=== PATIENT | female | born 1990 | race Caucasian/White ===

== ENCOUNTER 2023-07-16 14:31 | Outpatient (REF) | payer OTHER, SELFPAY ==
[2023-07-19 17:10] LABS: Age Gdln ACOG Testing Note (.); HPV Aptima Negative (Negative); IGP, Aptima HPV, rfx 16/18,45 Note (.)
== END 2023-07-16 14:32 | disposition home or self-care (01) ==
LOC: LAB 14:31
PROVIDERS: Visit Provider Obstetrics & Gynecology
DX: Z01.419 Encounter for gynecological examination (general) (routine) without abnormal findings (principal)
CPT/HCPCS: 87624; G0145

== ENCOUNTER 2024-07-23 17:56 | Outpatient (REF) | payer OTHER, SELFPAY | END 2024-07-23 17:57 | disposition home or self-care (01) | LOC: LAB 17:56 | PROVIDERS: Visit Provider Obstetrics & Gynecology | DX: Z01.419 Encounter for gynecological examination (general) (routine) without abnormal findings (principal) | CPT/HCPCS: 87624; 88175 ==

== ENCOUNTER 2024-11-13 11:10 | Outpatient (OUT) | payer OTHER, SELFPAY ==
--- OUTSIDE RECORDS SUMMARY | 2024-11-13 11:15 | XMS_ITS | Encounter Summary ---
Author Organization [facility] Address [address] [facility] [place] [address] Care Team Providers Care It Support Analyst Name Role Phone Racquel Fritz MD Primary Care Provider [phone] Encounter Details Date Type Department Care Team (Late st Contact Info) Description 07/28/2024 Orders Only [facility] [address] [facility] [place] [address] Allyson Campbell LPN [address] ST[address] [facility]11 Social History Tobacco Use Types Packs/Day Years Used Date Smoking Tobacco: Former Cigarettes Q uit: 09/13/2017 Alcohol Use Standard Drinks/Week Comments Yes 0 (1 standard drink = 0.6 oz pure alcohol) caffeine: 1-2 cups per day coffee Comments No Sex and Gender Information Value Date Recorded Sex Assigned at Female 07/09/2023 9:04 AM EDT Legal Sex Female 6:51 PM EDT Gender Identity Female 07/09/2023 9:04 AM EDT Sexual Orientation Straight 07/09/2023 9 :04 AM EDT documented as of this encounter Plan of Treatment Upcoming Encounters Date Type Department Care Team (Late st Contact Info) Description 11/24/2024 9:10 AM EDT Office Visit [facility] [address] [facility] [place] [phone] Panda Justice, [address] [facility] [place] [address] 07/28/2025 11:00 AM EDT Office Visit [facility] OB [address] [facility] [place] [address] Panda Jsutice, [address] [facility] [place] [address] documented as of this encounter Procedures Procedure Name Priority Date/Time Associated Diagnosis Comments PAP SMEAR Routine 07/23/2024 12:00 AM EDT documented in this encounter Results * Pap Smear (07/23/2024 12:00 AM EDT) Swab Cervical swab / Unknown Vinh Nurse [facility] LAB CYTOLOGY ORDERABLES Final Result EXTERNAL LAB documented in this encounter Visit Diagnoses Not on filedocumented in this encounter Care Teams It Support Analyst Relationship Specialty Start Date End Date Racquel Fritz MD [address] [place] [address] PCP - General Family Medicine 08/28/22 documented as of this encounter
--- OUTSIDE RECORDS SUMMARY | 2024-11-13 11:15 | XMS_ITS | Clinical Summary ---
Author Organization [facility] Address [address] [facility] [place] [address] Care Team Providers Care International Logistics Manager Name Role Phone Racquel Fritz MD Primary Care Provider [phone] Allergies Active Allergy Reactions Criticality Noted Date Comments Calamine 07/16/2023 Other Reaction(s): Unknown Camphor 07/16/2023 Other Reaction(s): Unknown Diphenhydramine 07/16/2023 Other Reaction(s): Unknown Pramoxine 07/16/2023 Other Reaction(s): Unknown Pramoxine-Calamine 07/16/2023 Other Reaction(s): Unknown Medications lamoTRIgine (LaMICtal) 200 MG tablet Take 1 tablet by mouth at bedtime 4 Active citalopram (CeleXA) 40 MG tablet Take 40 mg by mouth Daily 4 Active amphetamine-dex troamphetamine XR (Adderall XR) 25 MG 24 hr capsule TAKE 1 CAPSULE BY MOUTH 1 TIME PER DAY IN THE MORNING UPON AWAKENING 4 Active levonorgestrel- ethinyl estradiol (Jolessa) 0.15-0.03 MG tabletIndicatio ns: control counseling Take 1 tablet by mouth Daily 91 tablet 3 5 Active Encounters Date Type Department Care Team Description 10/20/2024 Abstract [facility] OB [address] [place] [address] [place] [address] Jeanine Ospina, ENGINE WATCHMAN 10/20/2024 Telephone [facility] [address] [place] [address] Panda Justice DO 10/20/2024 Orders Only N[facility] [address] [place] [address] Panda Justice DO Encounter for long-term (current) use of medications 09/25/2024 Abstract [facility] [address] [place] [address] Panda Justice DO 09/01/2024 Abstract [facility] [address] [place] [address] Jeanine Ospina, ENGINE WATCHMAN 09/01/2024 [address]phone [facility] [address] [place] [address] Panda Justice DO from Last 3 Months Family History Medical History Relation Name Comments Hypertension Father Diabetes Mother Cancer Paternal Grandmother Relation Name Status Comments Father Alive Mother Alive Paternal Grandmother Sister open heart surg hue[place] as a child Social History Tobacco Use Types Packs/Day Years Used Date Smoking Tobacco: Former Cigarettes Q uit: 09/13/2017 Tobacco Cessation:Counseling Given: Not Answered Alcohol Use Standard Drinks/Week Comments Yes 0 (1 standard drink = 0.6 oz pure alcohol) caffeine: 1-2 cups per day coffee Comments No Sex and Gender Information Value Date Recorded Sex Assigned at Female 07/09/2023 9:04 AM EDT Legal Sex Female 6:51 PM EDT Gender Identity Female 07/09/2023 9:04 AM EDT Sexual Orientation Straight 07/09/2023 9: 04 AM EDT Last Filed Vital Signs Vital Sign Reading Time Taken Comments Blood Pressure 122/72 07/23/2024 11:27 AM EDT Pulse - - Temperature - - Respiratory Rate - - Oxygen Saturation - - Inhaled Oxygen Concentration - - Weight 103 kg (228 lb) 07/23/2024 11:27 AM EDT Height 169.5 cm (5' 6.75 ) 11/21/2017 12:00 PM E DT Body Mass Index 35.98 11/21/2017 12:00 PM EDT Plan of Treatment Upcoming Encounters Date Type Department Care Team (Late st Contact Info) Description 11/24/2024 9:10 AM EDT Office Visit [facility] OB [address] [place] [address] [place] [phone] Panda Justice, DO [address] [facility] [address] [place], [place] [id number] 07/28/2025 11:00 AM EDT Office Visit [facility] OB [address] [place] [address] [place] [address] Panda Justice, DO [address] [facility] [address] [place], [place] [id number] Health Maintenance Due Date Last Done Comments Influenza Vaccine (#1) 2024 Pap Smear 07/24/2027 07/23/2024, 07/16/2023 Cervical Cancer Screening 07/15/2028 HPV/Cotest 07/15/2028 08/12/2017 Procedures Procedure Name Priority Date/Time Associated Diagnosis Comments PAP SMEAR Routine 07/23/2024 12:00 AM EDT Q - THINPREP(R) TIS AND HPV MRNA E6/E7 RFL HPV 16,18/45 Routine 08/12/2017 from Last 3 Months or Most Recently Relevant to Health Maintenance Results * Pap Smear (07/23/2024 12:00 AM EDT) Swab Cervical swab / Unknown us Vinh Nurse [facility] Ob LAB CYTOLOGY ORDERABLES Final Result EXTERNAL LAB * (ABNORMAL) Q - THINPREP(R) TIS AND HPV MRNA E6/E7 RFL HPV 16,18/45 (08/12/2017) RESULTS SEE NOTE(A) [facility] Comment: GYNECOLOGICAL CYTOLOGY REPORT THINPREP TIS PAP AND HPV mRNA, E6/E7 REFLEX HPV 16,18/45 Thinprep-TIS REPORT STATUS: FINAL CLINICAL INFORMATION: Information not provided SLIDES / SOURCE: 1 / Information not provided STATEMENT OF ADEQUACY: Satisfactory for evaluation. Endocervical/transformation zone component present. INTERPRETATION/RESULT: Negative for intraepithelial lesion or malignancy. Shift in vaginal kate suggestive of bacterial vaginosis. COMMENT: This Pap test has been evaluated with computer assisted technology. FULL SERVICE VENDING DRIVER: DAX MENENDEZ(ASC) For informational Purposes: All cytology [facility] are [facility] and [facility]. [address] [place] [address], [facility]) For informational purposes: All cytology specimens are processed at [facility]. [address] [place] [address] The Pap is a screening test for cervical cancer. It is not a diagnostic test and is subject to false negative and false positive results. It is most reliable when a satisfactory sample, regularly obtained, is submitted with relevant clinical findings and history, and when the Pap result is evaluated along with historic and current clinical information. HPV mRNA E6/E7 RFX HPV 16, 18/45 HPV mRNA E6E7 Detected REFERENCE RANGE: NOT DETECTED This test was performed using the APTIMA HPV Assay ([employer] This assay detects E6/E7 viral messenger RNA (mRNA) from 14 high-risk HPV types (16,18,31,33,35,39,45,51,52,56,58,59,66,68). For more information on the limitations of this test, visit: http://www.opinions.h.SalesWarp/testcenter/ testguide.action?dc=TS_HPV_HighRiskE6_E7_TMA HPV GENOTYPES 16,18/45 HPV 16 RNA TMA NOT DETECTED HPV 18/45 RNA TMA NOT DETECTED 08/12/2017 Andressa Barillas CNM [facility] Final Result [facility] from Last 3 Months or Most Recently Relevant to Health Maintenance Insurance [employer] Care Teams International Logistics Manager Relationship Specialty Start Date End Date Racquel Fritz MD [address] [place] [address] PCP - General Family Medicine 08/28/22
--- OUTSIDE RECORDS SUMMARY | 2024-11-13 11:15 | XMS_ITS | Encounter Summary ---
Author Organization [facility] Address [address] [facility] [place] [address] Care Team Providers Care Legal Clerk Name Role Phone Racquel Fritz MD Primary Care Provider [phone] Encounter Details Date Type Department Care Team (Late st Contact Info) Description 07/22/2023 Orders Only [facility] OB [address] [facility] [place] [address] Allyson Campbell LPN [address] STACK [facility]11 Social History Tobacco Use Types Packs/Day Years Used Date Smoking Tobacco: Former Cigarettes Q uit: 09/13/2017 Alcohol Use Standard Drinks/Week Comments Yes 0 (1 standard drink = 0.6 oz pure alcohol) caffeine: 1-2 cups per day coffee Comments Unknown Sex and Gender Information Value Date Recorded Sex Assigned at Female 07/09/2023 9:04 AM EDT Legal Sex Female 6:51 PM EDT Gender Identity Female 07/09/2023 9:04 AM EDT Sexual Orientation Straight 07/09/2023 9: 04 AM EDT documented as of this encounter Plan of Treatment Upcoming Encounters Date Type Department Care Team (Late st Contact Info) Description 11/24/2024 9:10 AM EDT Office Visit [facility] [address] [facility] [place] [phone] Panda Justice, DO [address] [facility] [place] [address] 07/28/2025 11:00 AM EDT Office Visit [facility] OB [address] [facility] [place] [address] Panda Justice, DO [address] [facility] [place] [address] documented as of this encounter Procedures Procedure Name Priority Date/Time Associated Diagnosis Comments PAP SMEAR Routine 07/16/2023 12:00 AM EDT documented in this encounter Results * Pap Smear (07/16/2023 12:00 AM EDT) Swab Cervical swab / Unknown us Panda Justice DO LAB CYTOLOGY ORDERABLES Final Re sult EXTERNAL LAB documented in this encounter Visit Diagnoses Not on filedocumented in this encounter Care Teams Legal Clerk Relationship Specialty Start Date End Date Racquel Fritz MD [address] [place] [address] PCP - General Family Medicine 08/28/22 documented as of this encounter
--- OUTSIDE RECORDS SUMMARY | 2024-11-13 11:15 | XMS_ITS | Encounter Summary ---
Author Organization [facility] Address [address] [facility] [place] [address] Care Team Providers Care House Painter Name Role Phone Racquel Fritz MD Primary Care Provider [phone] Encounter Details Date Type Department Care Team (Late st Contact Info) Description 10/20/2024 Abstract [facility] OB [address] [facility] [address] Jeanine Ospina LPN Social History Tobacco Use Types Packs/Day Years [...] 11/24/2024 9:10 AM EDT Office Visit [facility] OB [address] [facility] [address] Panda Justice, DO [address] [place] [address] 07/28/2025 11:00 AM EDT Office Visit [facility] OB [address] [facility] [place] [place] [address] Panda Justice DO [address] [facility] [address] [place], [place] [id number] documented as of this encounter Visit Diagnoses Not on filedocumented in this encounter Care Teams House Painter Relationship Specialty Start Date End Date Racquel Fritz MD [address] [place] [address] PCP - General Family Medicine 08/28/22 documented as of this encounter
--- OUTSIDE RECORDS SUMMARY | 2024-11-13 11:15 | XMS_ITS | Clinical Summary ---
Author Organization [facility] Address [address] [place] [address] Care Team Providers Care Credit Authorizer Name Role Phone Unavailable Primary Care Provider Unavailabl e Social History Tobacco Use Types Packs/Day Years Used Date Smoking Tobacco: Never Assessed Comments Unknown Sex and Gender Information Value Date Recorded Sex Assigned at Not on file Legal Sex Female 10:28 PM EDT Gender Identity Not on file Sexual Orientation Not on file Plan of Treatment Not on file
--- OUTSIDE RECORDS SUMMARY | 2024-11-13 11:15 | XMS_ITS | Encounter Summary ---
Author Organization [facility] Address [address] [facility] [place] [address] Care Team Providers Care Vice President Pharmacy Name Role Phone Racquel Fritz MD Primary Care Provider [phone] Encounter Details Date Type Department Care Team (Late st Contact Info) Description 09/01/2024 Abstract [facility] OB [address] [facility] [place] [address] Jeanine Ospina LPN Social History Tobacco [...] 11/24/2024 9:10 AM EDT Office Visit [facility] OB [address] [facility] [place] [address] Panda Justice, DO [address] [place] [address] 07/28/2025 11:00 AM EDT Office Visit [facility] OB [address] [facility] [place] [address] Panda Justice DO [address] [facility] [address] [place], [place] [id number] documented as of this encounter Visit Diagnoses Not on filedocumented in this encounter Care Teams Vice President Pharmacy Relationship Specialty Start Date End Date Racquel Fritz MD [address] [place] [address] PCP - General Family Medicine 08/28/22 documented as of this encounter
--- OUTSIDE RECORDS SUMMARY | 2024-11-13 11:15 | XMS_ITS | Encounter Summary ---
Author Organization [facility] Address [address] [facility] [place] [address] Care Team Providers Care Set Builder Name Role Phone Racuqel Fritz MD Primary Care Provider [phone] Encounter Details Date Type Department Care Team (Late st Contact Info) Description 07/23/2024 Abstract [facility] OB [address] [facility] [place] [address] Jeanine Ospina LPN Social History Tobacco [...] 11/24/2024 9:10 AM EDT Office Visit [facility] OB [address] [facility] [place] [address] Panda Justice, DO [address] [place] [address] 07/28/2025 11:00 AM EDT Office Visit [facility] OB [address] [facility] [place] [address] Panda Justice DO [address] [facility] [address] [place], [place] [id number] documented as of this encounter Visit Diagnoses Not on filedocumented in this encounter Care Teams Set Builder Relationship Specialty Start Date End Date Racquel Fritz MD [address] [place] [address] PCP - General Family Medicine 08/28/22 documented as of this encounter
--- OUTSIDE RECORDS SUMMARY | 2024-11-13 11:15 | XMS_ITS | Encounter Summary ---
Author Organization [facility] Address [address] [facility] [place] [address] Care Team Providers Care Track Sweeper Name Role Phone Racquel Fritz MD Primary Care Provider [phone] Encounter Details Date Type Department Care Team (Late st Contact Info) Description 09/25/2024 Abstract [facility] OB [address] [facility] [place] [address] Panda Justice, [address] [place], [facility] Social History Tobacco Use Types [...] 11/24/2024 9:10 AM EDT Office Visit [facility] OB [address] [facility] [place] [address] Panda Justice, DO [address] [facility] [address] 07/28/2025 11:00 AM EDT Office Visit [facility] OB [address] [facility] [place] [phone] Panda Justice, DO [address] [facility] [address] [place], [place] [id number] documented as of this encounter Visit Diagnoses Not on filedocumented in this encounter Care Teams Track Sweeper Relationship Specialty Start Date End Date Racquel Fritz MD [address] [place] [address] PCP - General Family Medicine 08/28/22 documented as of this encounter
--- OUTSIDE RECORDS SUMMARY | 2024-11-13 11:15 | XMS_ITS | Clinical Summary ---
Author Organization [facility] Address [id number] [address] [place] [address] Care Team Providers Care Lay Out Maker Name Role Phone Unavailable Primary Care Provider Unavailabl e Social History Tobacco Use Types Packs/Day Years Used Date Smoking Tobacco: Never Assessed Childcare Answer Date Recorded Childcare Unknown 10/01/2018 Employment Answer Date Recorded Employment Unknown 10/01/2018 Comments Unknown Sex and Gender Information Value Date Recorded Sex Assigned at Not on file Legal Sex Female 11:59 AM EDT Gender Identity Not on file Sexual Orientation Not on file Plan of Treatment Not on file Medical Devices Not on file
--- OUTSIDE RECORDS SUMMARY | 2024-11-13 11:36 | XMS_ITS | CCD ---
Author Organization [facility] Inform ion [facility] Care Team Providers Care Audio Visual Aids Director Name Role Phone VINH ., DR VALLE Admitting Unavailable VINH ., DR VALLE Primary Care Unavailable VINH ., DR VALLE Consulting Unavailable VINH ., DR VALLE Attending Unavailable ELPIDIO ., SUSIE Consulting Unavailable ELPIDIO ., SUSIE Attending Unavailable VINH ., DR VALLE Primary Care Unavailable ELPIDIO .SUSIE Admitting Unavailable Racquel Fritz MD Primary Care Provider TORI JUSTICE Attending Unavailable Reid Parisi Attending Unavailab le Reid Parisi Admitting Unavailab Racquel Phillips Primary Care Un available Allergies Allergy Classification Reported Allergen(s) Allergy Type Date of Onset Reaction(s) Facility (1 source) Calamine / pramoxine Drug Allergy 5 [facility] Repository (4 sources) Calamine Drug Allergy 4 [facility] Work Phone: (4 sources) Camphor Drug Allergy 4 [facility] (4 sources) diphenhydrAMINE Drug Allergy 4 [facility] (4 sources) pramoxine Drug Allergy 4 [facility] (4 sources) Pramoxine-Calamine Drug Allergy 4 [facility] Medications Current Medications Medication Drug Class(es) Dates Sig (Normalized) Sig (Original) 24 hr amphetamine aspartate 6.25 mg / amphetamine sulfate 6.25 mg / dextroamphetamine saccharate 6.25 mg / dextroamphetamine sulfate 6.25 mg extended release oral capsule (4 sources) Central Nervous System Stimulant Start: 07-08-2023 take 1 capsule by mouth once daily in the morning amphetamine-dex troamphetamine XR (Adderall XR) 25 MG 24 hr capsule TAKE 1 CAPSULE BY MOUTH 1 TIME PER DAY IN THE MORNING UPON AWAKENING 07/08/2023 Active citalopram 40 mg oral tablet (4 sources) Serotonin Reuptake Inhibitor Start: 06-27-2023 take 1 tablet by mouth once daily citalopram (CeleXA) 40 MG tablet Take 40 mg by mouth Daily 06/27/2023 Active Ethinyl Estradiol / Levonorgestrel (6 sources) Progestin, Estrogen, Progestin-containi ng Intrauterine Device Start: 07-23-2024 levonorgestrel- ethinyl estradiol (Jolessa) 0.15-0.03 MG tablet Indications: control counseling Take 1 tablet by mouth Daily 91 tablet 3 07/23/2024 Active Start: 07-16-2023 End: 07-23-2024 levonorgestrel-ethinyl estra diol (Jolessa) 0.15-0.03 MG tablet Indications: control counseling Take 1 tablet by mouth Daily 91 tablet 3 07/16/2023 07/23/2024 Discontinued (Reorder) Start: 07-16-2023 levonorgestrel -ethinyl estradiol (Jolessa) 0.15-0.03 MG tablet Indications: control counseling Take 1 tablet by mouth Daily 91 tablet 3 07/16/2023 Active lamoTRIgine 200 mg oral tablet (4 sources) Mood Stabilizer, Anti-epileptic Agent Start: 06-27-2023 take 1 tablet by mouth at bedtime lamoTRIgine (LaMICtal) 200 MG tablet Take 1 tablet by mouth at bedtime 06/27/2023 Active Problems Problem Classification Problem Date Documented Date Episodic/Chronic Contraceptive and procreative management (4 sources) Patient encounter status; Translations: [Encounter for other general counseling and advice on contraception] 07-23-2024 Episodic Immunizations and screening for infectious disease (2 sources) Encounter for screening for human papillomavirus (HPV); Translations: [Contact with and (suspected) exposure to infections with a predominantly sexual mode of transmission] Onset: 07-10-2022 Episodic Other female genital disorders (1 source) Other specified noninflammatory disorders of vagina; Translations: [OTH SPEC NONINFLAMMATORY D/O VAGINA] Onset: 07-10-2022 Episodic Other screening for suspected conditions (not mental disorders or infectious disease) (4 sources) Encounter for screening for malignant neoplasm of cervix; Translations: [ENC SCREENING MALIG NEOPLASM CERV] Onset: 07-09-2022 Episodic Results Test Name Value Interpretation Reference Range Facility IGP,APTIMA HPV,AGE GDLNon AGE GDLN ACOG TESTING Note . [facility] Comment on above: TESTS RESULT FLAG UN ITS REF RANGE LAB Clinician Provided Cytology Information Source.............Cervix;Endocervix No. of containers..01 ThinPrep Vial Age Algo ACOG Saadia... 30-65 01 FLAG LEGEND: L-Low Normal,H-High Normal,LL-Alert Low,HH-Alert High <-Panic Low,>-Panic High,A-Abnormal,AA-Critical Abnormal Performed at: 01 =G [facility] [place] [address] Avelina Dc MD, HPV APTIMA Negative Negative [facility] e Comment on above: This nucleic acid am plification test detects fourteen high- risk HPV types (16,18,31,33,35,39,45,51,52,56,58,59,66,68) without differentiation. Performed at: =G - [facility] [id number] Cork Insulator Helper: Avelina Dc MD, Phone: [phone] Performed at: - [facility], [place] [id number] [place] Insulator Helper: Avelina Dc MD, Phone: [phone] IGP, APTIMA HPV, RFX 16/18,45 Note . [facility] Comment on above: TESTS RESULT FLAG UN ITS REF RANGE LAB DIAGNOSIS: 02 NEGATIVE FOR INTRAEPITHELIAL LESION OR MALIGNANCY. Specimen adequacy: 02 Satisfactory for evaluation. Endocervical and/or squamous metaplastic cells (endocervical component) are present. Performed by: Javier Curry, Electrical And Instrument Technician (ASCP) . 02 Note: Note 02 The Pap smear is a screening test designed to aid in the detection of premalignant and malignant conditions of the uterine cervix. It is not a diagnostic procedure and should not be used as the sole means of detecting cervical cancer. Both false-positive and false-negative reports do occur. Test Methodology: Note 02 This liquid based ThinPrep(R) pap test was screened with the use of an image guided system. HPV Genotype Reflex Note 02 Criteria not met, HPV Genotype not performed. FLAG LEGEND: L-Low Normal,H-High Normal,LL-Alert Low,HH-Alert High <-Panic Low,>-Panic High,A-Abnormal,AA-Critical Abnormal Performed at: [facility] [address] [place] [address] Avelina Dc MD, BRUSH-SPATULA CERVIX ENDOCERVIX [facility] HCG ( test) Ql (U)o n 07-23-2024 Interpretation and review of laboratory results Normal [facility] Preg Test, Ur Negative Negative [facility] Urinalysis macro (dipstick) panel (U)on 07-23-2024 Bilirubin, UA Negative Negative - 4(70) +++ mg/dL [facility] Blood, UA Negative Negative - 50 Jordan/mcL [facility] Clarity, UA [facility] re Color, UA Yellow [facility] e Glucose, UA Negative Negative - 1999(110) ++++ mg/dL [facility] Interpretation and review of laboratory results Normal [facility] Ketones, UA Positive Negative - 160(16) ++++ mg/dL [facility] Comment on above: trace Leukocytes, UA Negative Negative - 500+++ Judith/mcL [facility] Nitrite, UA Negative Negative - Positive [facility] pH, UA 6 5 - 9 [facility] e Protein, UA Negative Negative - 1999(20) ++++ mg/dL [facility] Spec Grav, UA 1.025 1 - 1.03 [facility] Urobilinogen, UA 0.2 0.2 - 12 mg/dL [facility] PAP ACOG PANEL 2: 30 to 65on 07-17-2022 . . Normal [facility] Comment on above: Result Comment: Perf ormed at: WB Performed By: #### [id number] #### [facility] [address] [address] [address] Leatha Dia Age Gdln ACOG Testing 30-65 Normal [facility] Comment on above: Performed By: #### [id number] #### [facility] [address] [address] [address] Leatha Dia DIAGNOSIS: Comment Normal [facility] Comment on above: Result Comment: NEGA TIVE FOR INTRAEPITHELIAL LESION OR MALIGNANCY. Performed at: [facility] Performed By: #### [id number] #### [facility] [address] [address] [address] Leatha Dia HPV Aptima Negative Normal [facility] Comment on above: Result Comment: This nucleic acid amplification test detects fourteen high-risk HPV types (16,18,31,33,35,39,45,51,52,56,58,59,66,68) without differentiation. Performed at: =G Performed By: #### [id number] #### [facility] [address] [place] [address] Dr. Leatha Dia HPV Genotype Reflex Comment Normal [facility] Comment on above: Result Comment: Crit eria not met, HPV Genotype not performed. Performed at: WB Performed By: #### [id number] #### [facility] [address] [place] [address] Dr. Leatha Dia Methodology: Comment Normal [facility] Comment on above: Result Comment: This liquid based ThinPrep(R) pap test was screened with the use of an image guided system. Performed at: WB Performed By: #### [id number] #### [facility] [address] [place] [address] Dr. Leatha Dia Note: Comment Normal [facility] Comment on above: Result Comment: The Pap smear is a screening test designed to aid in the detection of premalignant and malignant conditions of the uterine cervix. It is not a diagnostic procedure and should not be used as the sole means of detecting cervical cancer. Both false-positive and false-negative reports do occur. . Performed at: WB Performed By: #### [id number] #### [facility] [address] [place] [address] Dr. Leatha Dia Performed by: Comment Normal [facility] Comment on above: Result Comment: Tarah Torres, Electrical And Instrument Technician (ASCP) Performed at: WB Performed By: #### [id number] #### [facility] [address] [place] [address] Dr. Leatha Dia Specimen adequacy: Comment Normal [facility] Comment on above: Result Comment: Sati sfactory for evaluation. Endocervical and/or squamous metaplastic cells (endocervical component) are present. Performed at: WB Performed By: #### 4 [id number] #### [facility] [address] [place] [address] Dr. Leatha Dia CHLAMYDIA/GONOCOCCUS HECTOR (SW AB/URINE/PAPon 07-12-2022 Chlamydia trachomatis, HECTOR Negative Normal Negative [facility] Comment on above: Performed By: #### C T/NGNA #### [facility] [address] [place] [address] Dr. Leatha Dia Neisseria gonorrhoeae, HECTOR Negative Normal Negative [facility] Comment on above: Performed By: #### C T/NGNA #### [facility] [address] [address] [address] Leatha Dia VAGINITIS/VAGINOSIS DNA PROB Camilo 07-11-2022 Ciara species Negative Normal Negative [facility] Comment on above: Performed By: #### V AGINT #### [facility] [address] [place] [address] Dr. Leatha Dia Gardnerella vaginalis Negative Normal Negative [facility] Comment on above: Performed By: #### V AGINT #### [facility] [address] [place] [address] Dr. Leatha Dia Trichomonas vaginalis Negative Normal Negative [facility] Comment on above: Performed By: #### V AGINT #### [facility] [address] [place] [address] Dr. Leatha Dia Vital Signs Date Time Vital Sign Value Performing Clinician Faci lity 07-23-2024 11:27-0400 Body mass index (BMI) [Ratio] 35.98 kg/m2 Tori Vinh DO Work Phone: [facility] 07-23-2024 11:27-0400 Body weight 103.42 kg Tori Vinh DO Work Phone: [facility] 07-23-2024 11:27-0400 Diastolic blood pressure 72 mm[Hg] Tori Vinh DO Work Phone: [facility] 07-23-2024 11:27-0400 Systolic blood pressure 122 mm[Hg] Tori Vinh DO Work Phone: [facility] Encounters Encounter Date Encounter Type Care Provider Facility Start: 10-13-2024 ambulatory Reid Carney acility:[place] Start: 07-23-2024 End: 07-23-2024 Bamboo flowsheet Tori Vinh DO Work Phone: [facility] Start: 07-23-2024 End: 07-28-2024 Bamboo flowsheet Tori Vinh DO Work Phone: [facility] Start: 07-23-2024 End: 07-28-2024 Clinisync Result Encounter Tori Vinh DO Work Phone: [facility] Unsolicited Start: 07-23-2024 End: 07-23-2024 ambulatory TORI VINH Not Available Start: 07-23-2024 End: 07-23-2024 Patient encounter procedure Tori Vinh DO Work Phone: [facility] Start: 07-23-2024 End: 07-23-2024 Periodic preventive med est patient 18-39 yrs Tori Vinh DO Work Phone: [facility] Comment on above: Well woman exam with routine gynecological exam; control counseling; Encounter for weight management Start: 07-09-2022 End: 07-09-2022 ambulatory SUSIE CADETEY . Facility: Procedures Date Procedure Procedure Detail Performing Clinician Start: 07-23-2024 End: 07-23-2024 Urnls dip stick/tablet rgnt non-auto w/o micrscp Tori Vinh DO Work Phone: Start: 07-23-2024 IGP,APTIMA HPV,AGE GDLN Tori Vinh DO Work Phone: Start: 07-23-2024 Microscopic observat ion [Identifier] in Cervix by Cyto stain Tori Vinh DO Work Phone: Start: 07-16-2023 Microscopic observat ion [Identifier] in Cervix by Cyto stain Tori Vinh DO Work Phone: Plan of Treatment Date Care Activity Detail Author Start: 07-15-2028 Screening for malign ant neoplasm of cervix [facility] Start: 07-24-2027 Screening for malign ant neoplasm of cervix Pap Smear [facility] Start: 07-28-2025 End: 07-28-2025 Patient encounter procedure 07/28/2025 11:00 AM EDT Office Visit [facility] [address] [place] [id number] Tori Justice, DO [address] [place] [address] [facility] Start: 12-21-2024 Influenza vaccination Influenz a Vaccine (Season Ended) [facility] Start: 10-22-2024 End: 10-22-2024 Patient encounter procedure 10/22/2024 10:00 AM EDT Office Visit [facility] [address] [place] [id number] Tori Justice, DO [address] [place], [place] [id number] [facility] Cytology Cervical or vaginal smear or scraping study Pap Smear Pathology and Cytology Routine Well woman exam with routine gynecological exam Ordered: 07/23/2024 [facility] Work Phone: Comment on above: Ordered: 07/23/2024 Human papilloma viru s DNA [Presence] in Unspecified specimen by Probe with amplification HPV DNA probe, amplified Microbiology Routine Well woman exam with routine gynecological exam Ordered: 07/23/2024 [facility] Comment on above: Ordered: 07/23/2024 Payers Date Payer Category Payer Private Health Insurance [employer] [id number] 2023 Private Health Insurance [id number] 2022 Self-pay 1992 Unknown [id number] 1992 Unknown [id number] 1992 Unknown [id number] 1959 Unknown [id number] Unknown [id number] Social History Date Type Detail Facility Start: 06-28-2023 Tobacco smoking stat [facility] Ex-smoker [facility] End: 09-13-2017 History of tobacco use Current smoker [facility] End: 09-13-2017 History of tobacco use Cigarette Smoker [facility] Start: 07-16-2023 End: 07-23-2024 Alcoholic beverage intake Current drinker of alcohol (finding) [facility] Start: 07-16-2023 End: 07-23-2024 History of Social function [facility] Start: 07-16-2023 End: 07-23-2024 Tobacco use panel [facility] Start: 06-28-2023 Alcohol Comment caffeine: 1-2 cups per day coffee [facility] Start: 1990 Sex assigned at Female [facility] Start: 07-09-2023 Gender identity Identifies as female gender (finding) [facility] Start: 07-09-2023 Sexual orientation Heterosexual (fin ding) [facility] History of Present illness Narrative 07-23-2024 Lucinda Friedman MA - 07/23/2024 11:00 AM EDT Note Date & Type Note Facility 07-23-2024 History of Presen t illness Narrative Reason for Appointment: Patient ID: Isatu Dia is a 34 y.o. female who presents for Gynecologic Exam Patient presents today for Annual Exam. MEDICATIONS Current Outpatient Medications Medication Instructions amphetamine-dextroamphetamine XR (Adderall XR) 25 MG 24 hr capsule TAKE 1 CAPSULE BY MOUTH 1 TIME PER DAY IN THE MORNING UPON AWAKENING citalopram (CELEXA) 40 mg, Oral, Daily lamoTRIgine (LaMICtal) 200 MG tablet 1 tablet, Oral, Nightly levonorgestrel-ethinyl estradiol (Jolessa) 0.15-0.03 MG tablet 1 tablet, Oral, Daily ALLERGIES Allergies Allergen Reactions Calamine Other Reaction(s): Unknown Camphor Other Reaction(s): Unknown Diphenhydramine Other Reaction(s): Unknown Pramoxine Other Reaction(s): Unknown Pramoxine-Calamine Other Reaction(s): Unknown PROBLEMS Active Ambulatory Problems Diagnosis Date Noted No Active Ambulatory Problems Resolved Ambulatory Problems Diagnosis Date Noted No Resolved Ambulatory Problems Past Medical History: Diagnosis Date ADHD (attention deficit hyperactivity disorder) ([facility]) Depression ([facility]) HISTORY PAST MEDICAL HISTORY SOCIAL HISTORY Past Medical History: Diagnosis Date ADHD (attention deficit hyperactivity disorder) ([facility]) Depression ([facility]) Social History Tobacco Use Smoking status: Former Current packs/day: 0.00 Types: Cigarettes Quit date: 09/13/2017 Years since quittin.8 Smokeless tobacco: Not on file Substance Use Topics Alcohol use: Yes Comment: caffeine: 1-2 cups per day coffee Drug use: Yes Types: Marijuana Comment: smokes marijuana 3x a day FAMILY HISTORY Family History Problem Relation Name Age of Onset Diabetes Mother Hypertension Father Cancer Paternal Grandmother SURGICAL HISTORY History reviewed. No pertinent surgical history. REVIEW OF SYSTEMS Review of Systems: Review of Systems All other systems reviewed and are negative. OBJECTIVE Objective: Physical Exam Constitutional: Appearance: Normal appearance. Genitourinary: Right Adnexa: not tender and no mass present. Left Adnexa: not tender and no mass present. No cervical discharge. Breasts: Breasts are soft. Right: Normal. Left: Normal. HENT: Head: Normocephalic. Nose: Nose normal. Mouth/Throat: Mouth: Mucous membranes are moist. Cardiovascular: Rate and Rhythm: Normal rate. Pulmonary: Effort: Pulmonary effort is normal. Abdominal: General: Bowel sounds are normal. Palpations: Abdomen is soft. Musculoskeletal: General: Normal range of motion. Cervical back: Normal range of motion. Neurological: General: No focal deficit present. Mental Status: She is alert. Skin: General: Skin is warm and dry. Psychiatric: Mood and Affect: Mood normal. Vitals and nursing note reviewed. Exam conducted with a compensation vice president present. Vitals: Estimated body mass index is 35.98 kg/m as calculated from the following: Height as of 18: 5' 6.75 . Weight as of this encounter: 228 lb. BP: 122/72 No LMP recorded (lmp unknown). ASSESSMENT & PLAN ICD-10-CM 1. Well woman exam with routine gynecological exam Z01.419 POCT urinalysis dipstick manually resulted POCT , urine manually resulted Pap Smear HPV DNA probe, amplified 2. control counseling Z30.09 levonorgestrel-ethinyl estradiol (Jolessa) 0.15-0.03 MG tablet 3. Encounter for weight management Z76.89 Annual Exam: Patient presents today for an annual exam. Patient states she is doing well and has no complaints. Pap was obtained without difficulty. Patient in need of b/c Jolessa refilled at today's visit. Rx was sent to pharmacy for the year. Patient voiced she is doing well on Jolessa. Discussed weight loss injection with patient, and patient desires to proceed with Semaglutide being sent to [facility]. Patient prefers to have methyl B-12 and niacinamide added to semaglutide by injection as it allows for better absorption. Patient aware the [facility] will reach out to her & patient given handout for [facility]. Patient to RTC in 3 month for follow up weight management and CMP to be ordered at that time. Patient aware that nursing will send refills monthly to [facility] for increase dosages, but patient is welcome to call office when she is in need of refills to be sent. Orders Placed This Encounter Procedures HPV DNA probe, amplified POCT urinalysis dipstick manually resulted POCT , urine manually resulted Follow Up: Patient is to return in one year for annual unless needed otherwise. RTC in 3 months for weight management and CMP to be ordered at that time. Documented by Lucinda Friedman MA on behalf of: Tori Justice DO documented in this encounter [facility] Evaluation note Note Date & Type Note Facility Evaluation note Diagnosis Well woman exam with routine gynecological exam Routine gynecological examination control counseling Encounter for weight management documented in this encounter [facility] Summary Purpose Family History No Family History Records FoundNo Family History Records FoundNo Family History Records Found Advance Directives No Advanced Directives Records FoundNo Advanced Directives Records FoundNo Advanced Directives Records Found Additional Source Comments INFORMATION SOURCE (unrecogn ized section and content) DATE CREATED AUTHOR 07/20/2022 [facility] DATE CREATED AUTHOR AUTHOR'S ORGANIZ ATION 07/26/2024 [facility] EPIC DATE CREATED AUTHOR AUTHOR'S ORGANIZ ATION 10/14/2024 [facility] Care Teams (unrecognized sec tion and content) Audio Visual Aids Director Relationship Specialty Start Date End Date Racquel Fritz MD [address] [place] [address] PCP - General Family Medicine 08/28/22 Audio Visual Aids Director Relationship Specialty Start Date End Date Racquel Fritz MD [address] [facility] [place] [address] PCP - General Family Medicine 08/28/22 Audio Visual Aids Director Relationship Specialty Start Date End Date Racquel Fritz MD [address] [facility] [place] [address] PCP - General Family Medicine 08/28/22 Reason for Visit (unrecogniz ed section and content) Reason Comments Gynecologic Exam FOR RECORDS PERTAINING TO PATIENTS WHO ARE OR HAVE BEEN ENROLLED IN A CHEMICAL DEPENDENCY/SUBSTANCEABUSE PROGRAM, SOME INFORMATION MAY BE OMITTED. This clinical summary was aggregated from multiple sources. Caution should be exercised in using it in the provision of clinical care. This summary normalizes information from multiple sources, and as a consequence, information in this document may materially change the coding, format and clinical context of patient data. In addition, data may be omitted in some cases. CLINICAL DECISIONS SHOULD BE BASED ON THE PRIMARY CLINICAL RECORDS. [facility] The [employer] website [facility]. provides no warranty or guarantee of the accuracy or completeness of information in this document.
[2024-11-13 12:15] LABS: Anion Gap 12.6; Blood Urea Nitrogen 15.0 mg/dL (7.0-18.0); Carbon Dioxide 27.1 mmol/L (21.0-32.0); Chloride 106 mmol/L (98-107); Glucose 91 mg/dL (74-106); Potassium 3.7 mmol/L (3.5-5.1); Sodium 142 mmol/L (136-145)
[2024-11-13 12:16] LABS: Alanine Aminotransferase 28 U/L (14-59); Albumin Globulin Ratio 1.1; Albumin Level 3.6 g/dL (3.4-5.0); Alkaline Phosphatase 34 U/L (46-116); Aspartate Amino Transferase 15 U/L (15-37); Calcium 9.0 mg/dL (8.5-10.1); Estimated GFR (African America >60 (>=60 mL/min/1.73m^2); Estimated GFR (Non-African Ame >60 (>=60 mL/min/1.73m^2); Globulin 3.2 g/dL; Total Protein 6.8 g/dL (6.4-8.2)
== END 2024-11-13 11:11 | disposition home or self-care (01) ==
LOC: LAB 11:13
PROVIDERS: Visit Provider Obstetrics & Gynecology
DX: Z79.899 Other long term (current) drug therapy (principal)
CPT/HCPCS: 36415; 80053